=== PATIENT | female | born 1950 | race Caucasian/White ===

== ENCOUNTER → 2017-04-18 | Outpatient (CLI) | payer OTHER ==
[~2017-04-18] MED LIST: ACTOS PO; ADVAIR 1001 DISK W/D INH; ADVAIR 250-501 EAC1 IH; ADVAIR INH; ALBUTEROL17 GM INH; ASPIRIN PO; ASPIRIN325 M1 PO; ATENOLOL PO; BAYER ASPIRIN325 M1 PO; CELEBREX PO; COMBIVENT INH14.7 GM INH; DECADRON PO; EFFEXOR75 M3 PO; FERRO-TIME325 MG PO; GLUCOTROL XL PO; HYDRALAZINE HCL25 MG PO; HYDROCODON-ACE1 EAC7 PO; JANUVIA100 MG PO; LANTUS SOLOSTAR3 ML SUBQ; LANTUS100 UNITS/ SUBQ; LASIX PO; LASIX20 MG PO; LEVAQUIN PO; LEVAQUIN750 MG PO; LIPITOR PO; LIPITOR20 MG PO; LISINOPRIL20 MG PO; LORTAB 10/500 T1 TAB PO; LORTAB 7.5-3251 EACH PO; LORTAB 7.5-5001 TAB PO; METFORMIN HCL750 MG PO; METFORMIN PO; METRONIDAZOLE PO; MEVACOR PO; MOEXIPRIL HCL15 MG PO; MOEXIPRIL HCL7.5 MG PO; NOVOLOG100 U/M2 SUBQ; NOVOLOG100 U/ML SUBQ; OMEPRAZOLE20 M2 PO; OMEPRAZOLE40 M1 PO; PHENERGAN PO; PRILOSEC40 MG PO; PROAIR HFA8.5 GM; SPIRIVA18 MCG INH; SYMBICORT INH; TASPRIN325 MG PO; TENORMIN25 MG PO; UNIVASC7.5 MG PO; VENLAFAXINE HCL75 M1 PO; VENLAFAXINE HCL75 M2 PO; XANAX0.5 MG PO; ZOLOFT PO
--- NOTE | ~2017-04-18 | XA80 ---
[facility] A Service of [facility] RADIOLOGY TEXT RESULTS PATIENT: JOSIAH MALIK LOCATION: [facility]IVR : 52 UNIT #: [id number] AGE: [address]: Perry Charles MD SEX: F ORDER DR: [id number] [place] [id number] [facility]. [place], [place] [address] [id number] O MR#: [id number] Acc #: [id number] NAME: JOSIAH MALIK : 1950 SEX: F STUDY DATE/TIME: 04/18/2017 9:13 UNIT: CIVR ROOM: STUDY DESCRIPTION: XA CVC Remove Tunneled Cath W Attending Physician: Perry Charles M.D. Ordering Physician: Perry Charles M.D. Primary Care Physician: Merari Hatch M.D. MEDICAL IMAGING REPORT This report is preliminary unless electronic signature is present EXAM Port removal. HISTORY Port no longer needed. TECHNIQUE The procedure was explained to the patient including risks, benefits, and complications. Informed consent was obtained, and a formal time-out procedure was utilized. Full barrier sterile technique was employed via standard protocol. Conscious sedation was employed with intravenous Versed and fentanyl that was administered by nursing who was present and monitoring the patient during the examination. Using full barrier sterile technique and following local anesthesia with 1% Xylocaine, the port pocket was removed with blunt and sharp dissection. Fluoroscopic evaluation of the chest showed no residual catheter fragments. The port pocket was closed with an interrupted subcutaneous layer of 3-0 Vicryl suture followed by Dermabond glue. The patient tolerated the procedure well. Total fluoroscopy time is 0.1 minutes with a total dose of 1 mGy. IMPRESSION Successful port removal with fluoroscopic guidance. Conscious sedation utilized. Dictated by... Alphonso Wylie M.D. THIS IS AN ELECTRONICALLY VERIFIED REPORT Alphonso Wylie M.D. at 04/20/2017 4:33 PM RLF/jt [facility] A Service [facility] RADIOLOGY TEXT RESULTS PATIENT: JOSIAH MALIK LOCATION: [facility] #: [id number] : 51 UNIT #: [id number] AGE: [address]: Perry Charles MD SEX: F ORDER DR: TD: 04/18/2017 21:54 JOB #: [id number] MEDICAL IMAGING REPORT Page 1 of 1 COPY
[2017-04-18 08:41] LABS: HEMATOCRIT 32.7 % (35.0-45.0); HEMOGLOBIN 10.9 gm/dL (12.0-16.0); MEAN CELL VOLUME 90.7 FL (83-96); MEAN CORPUSCULAR HEMOGLOBIN 30.1 PG (28-34); MEAN CORPUSCULAR HGB CONC 33.2 g/dL (30-36); MEAN PLATELET VOLUME 7.3 FL (6.5-11.5); RED BLOOD COUNT 3.61 X10e (3.90-5.30); RED CELL DISTRIBUTION WIDTH 14.2 % (11.0-15.5); WHITE BLOOD COUNT 7.2 X10e3 (4.0-10.5)
[2017-04-18 08:55] LABS: PARTIAL THROMBOPLASTIN TIME 23.3 SECONDS (23.5-31.3); PROTHROMBIN TIME (PATIENT) 10.4 SECONDS (9.6-11.5)
== END | disposition home or self-care (01) ==
LOC: CIVR 07:57 → CSSDAY 07:57 → CIVR 10:00
PROVIDERS: Internal Medicine Medical Oncology
DX: Z45.2 Encounter for adjustment and management of vascular access device (principal); C34.90 Malignant neoplasm of unspecified part of unspecified bronchus or lung; D70.8 Other neutropenia; L59.9 Disorder of the skin and subcutaneous tissue related to radiation, unspecified; D50.9 Iron deficiency anemia, unspecified; J44.9 Chronic obstructive pulmonary disease, unspecified; G47.30 Sleep apnea, unspecified; Z88.1 Allergy status to other antibiotic agents; Z88.8 Allergy status to other drugs, medicaments and biological substances
CPT/HCPCS: 36415; 77001; 82947; 85027; 85610; 85730; J1642; J2250; J3010

== ENCOUNTER 2017-06-22 18:10 | Emergency (ER) | payer OTHER ==
[~2017-06-22] VITALS: Ht 154.9 cm; Wt 70.3 kg
--- NOTE | ~2017-06-22 | CR72 ---
[facility] A Service of [facility] RADIOLOGY TEXT RESULTS PATIENT: JOSIAH MALIK LOCATION: [facility] : 51 UNIT #: [id number] AGE: [address]: Mitesh Platt MD SEX: F ORDER DR: [id number] [facility] [address] [place], [place] [address] [id number] E MR#: [id number] Acc #: [id number] NAME: JOSIAH MALIK : 1950 SEX: F STUDY DATE/TIME: 06/22/2017 19:52 UNIT: [facility] ROOM: STUDY DESCRIPTION: CR Chest Single View Portable Attending Physician: Mitesh Platt M.D. Ordering Physician: Ed Mitesh Le M.D. Primary Care Physician: Merari Hatch M.D. MEDICAL IMAGING REPORT This report is preliminary unless electronic signature is present EXAM Chest portable 06/22/2017 1952 hours HISTORY Altered mental status today, shortness of air with activity since 06/21/2017, vomiting. COMPARISON Chest CT 12/26/2016 FINDINGS Portable upright chest demonstrates median sternotomy change with normal heart size. There is chronic appearing increased density in the left perihilar and infrahilar region corresponding to postradiation change seen on CT scan 12/26/2016. There are no acute pulmonary densities. No effusion or pneumothorax. IMPRESSION Median sternotomy change with normal heart size. There is perihilar density on the left, similar to CT scan 12/26/2016, likely representing postradiation change in this patient with history of lung carcinoma. There is no definite acute pulmonary density or pleural effusion. Dictated by... Deborah Medina M.D. THIS IS AN ELECTRONICALLY VERIFIED REPORT Deborah Medina M.D. at 06/23/2017 9:28 AM ALIRIO/hollie TD: 06/22/2017 23:56 JOB #: [id number] [facility] A Service of [facility] RADIOLOGY TEXT RESULTS PATIENT: JOSIAH MALIK LOCATION: [facility] #: [id number] : 52 UNIT #: [id number] AGE: [address]: Mitesh Platt MD SEX: F ORDER DR: MEDICAL IMAGING REPORT Page 1 of 1 COPY
--- NOTE | ~2017-06-22 | CT71 ---
[facility] A Service of [facility] RADIOLOGY TEXT RESULTS PATIENT: JOSIAH MALIK LOCATION: [facility] : 52 UNIT #: [id number] AGE: [address]: Mitesh Platt MD SEX: F ORDER DR: [id number] [facility] [address] [place], [place] [address] [id number] E MR#: [id number] Acc #: [id number] NAME: JOSIAH MALIK : 1950 SEX: F STUDY DATE/TIME: 06/22/2017 20:51 UNIT: [facility] ROOM: STUDY DESCRIPTION: CT Head Wo Contrast Attending Physician: Mitesh Platt M.D. Ordering Physician: Mitesh Platt M.D. Primary Care Physician: Merari Hatch M.D. MEDICAL IMAGING REPORT This report is preliminary unless electronic signature is present EXAM CT brain without contrast HISTORY Headache and confusion for [address] exam was performed with one or more of the following radiation dose reduction techniques: automatic exposure control, adjustment of mA and/or kV according to patient size, and iterative reconstruction. FINDINGS CT brain without contrast demonstrates no intracranial hemorrhage, mass or edema. No midline shift or ventricular dilatation or extraaxial fluid collection. Moderate chronic ischemic changes in the deep white matter bilaterally. Mild generalized cerebral cortical atrophy. Small chronic lacunar infarct in the left lentiform nucleus. IMPRESSION 1. No acute intracranial findings. 2. Chronic ischemic changes in the deep white matter bilaterally and small chronic lacunar infarct in the left lentiform nucleus. Dictated by... Guillermo Leon M.D. THIS IS AN ELECTRONICALLY VERIFIED REPORT Guillermo Leon M.D. at 06/23/2017 10:10 PM AUSTYN/nathan TD: 06/23/2017 00:50 [facility] A Service of [facility] RADIOLOGY TEXT RESULTS PATIENT: JOSIAH MALIK LOCATION: [facility] : 52 UNIT #: [id number] AGE: [address]: Mitesh Platt MD SEX: F ORDER DR: JOB #: [id number] MEDICAL IMAGING REPORT Page 1 of 1 COPY
--- NOTE | ~2017-06-22 | EKG ---
PATIENT: JOSIAH MALIK UNIT #: [id number] Ventricular Rate: 77 BPM Atrial Rate: 77 BPM P-R Interval: 154 ms QRS Duration: 78 ms Q-T Interval: 386 ms QTC Calculation(Bezet): 436 ms P Munster: 81 degrees Calculated R Munster: 4 degrees Calculated T Munster: 70 degrees Diagnosis Line: Normal sinus rhythm Diagnosis Line: Normal ECG Diagnosis Line: When compared with ECG of 10-OCT-2016 13:38, Diagnosis Line: No significant change was found Diagnosis Line: Confirmed by TIN MOJICA MD ([id number]) on 06/24/2017 Diagnosis Line: 8:24:24 AM INTERPRETING MD: YUNIOR BENJAMIN
[2017-06-22 20:12] LABS: BASOPHIL# 0.1 X10e3 (0-0.3); BASOPHIL% 1.2 % (0-2.5); EOSINOPHIL# 0.1 X10e3 (0-0.7); EOSINOPHIL% 0.9 % (0.0-7.0); HEMATOCRIT 34.4 % (35.0-45.0); HEMOGLOBIN 11.4 gm/dL (12.0-16.0); LYMPHOCYTE# 1.1 X10e3 (1.0-3.5); MEAN CELL VOLUME 90.4 FL (83-96); MEAN CORPUSCULAR HEMOGLOBIN 29.9 PG (28-34); MEAN PLATELET VOLUME 8.2 FL (6.5-11.5); MONOCYTE# 0.6 X10e3 (0-1.0); MONOCYTE% 5.7 % (3.0-12.0); NEUTROPHIL% 82.2 % (40-75); PLATELET COUNT 238 X10e3 (140-420); RED BLOOD COUNT 3.81 X10e (3.90-5.30); RED CELL DISTRIBUTION WIDTH 14.6 % (11.0-15.5); WHITE BLOOD COUNT 10.9 X10e3 (4.0-10.5)
[2017-06-22 20:14] LABS: DIFF IND NO
[2017-06-22 20:36] LABS: ALBUMIN SERUM 4.3 g/dL (3.5-5.0); BILIRUBIN, DIRECT 0.1 mg/dL (0.0-0.2); BILIRUBIN,INDIRECT 0.3 mg/dL (0.0-0.9); BILIRUBIN,TOTAL 0.4 mg/dL (0.2-2.0); BUN/CREATININE RATIO 14.44; CALCIUM SERUM 9.1 mg/dL (8.4-10.2); CREATININE SERUM 0.9 mg/dL (0.6-1.4); GLOM FILT RATE Estimated 66.7 mL/min (>60); POTASSIUM 4.5 mmol/L (3.5-5.1); PROTEIN TOTAL SERUM 8.1 g/dL (6.0-8.3)
[2017-06-22 22:26] LABS: URINE SOURCE CLEAN CATCH
[2017-06-22 22:39] LABS: URINE APPEARANCE CLEAR; URINE BILIRUBIN NEG (NEG); URINE BLOOD NEG (NEG); URINE COLOR YELLOW; URINE GLUCOSE NEG (NEG); URINE KETONE TRACE (NEG); URINE LEUKOCYTE ESTERASE 1+ (NEG); URINE NITRATE POS (NEG); URINE PROTEIN TRACE (NEG); URINE SPECIFIC GRAVITY 1.018 (1.003-1.035)
[2017-06-22 22:42] LABS: CULTURE INDICATED? YES; URINE BACTERIA AUWI 4+ (NEGATIVE); URINE SQUAMOUS EPITHELIAL CELL OCC /[HPF]
== END 2017-06-23 | disposition home or self-care (01) ==
LOC: CED 18:10
DX: R41.0 Disorientation, unspecified (principal); N39.0 Urinary tract infection, site not specified; I11.9 Hypertensive heart disease without heart failure; E11.9 Type 2 diabetes mellitus without complications; J45.909 Unspecified asthma, uncomplicated; J44.9 Chronic obstructive pulmonary disease, unspecified; Z95.1 Presence of aortocoronary bypass graft; Z88.8 Allergy status to other drugs, medicaments and biological substances; Z88.1 Allergy status to other antibiotic agents; Z79.899 Other long term (current) drug therapy; Z79.82 Long term (current) use of aspirin
CPT/HCPCS: 36415; 70450; 71010; 80048; 80076; 81003; 82947; 85025; 87086; 87088; 87186; 93005; 99285; J0696

== ENCOUNTER → 2017-07-04 | Outpatient (CLI) | payer OTHER ==
--- NOTE | ~2017-07-04 | CT55 ---
[facility] A Service of [facility] RADIOLOGY TEXT RESULTS PATIENT: JOSIAH MALIK LOCATION: [facility] : 52 UNIT #: [id number] AGE: [address]: Perry Charles MD SEX: F ORDER DR: [id number] [facility] [address] [place], [place] [address] [id number] O MR#: [id number] Acc #: [id number] NAME: JOSIAH MALIK : 1950 SEX: F STUDY DATE/TIME: 07/04/2017 10:36 UNIT: [facility] ROOM: STUDY DESCRIPTION: CT Chest W Con Attending Physician: Perry Charles M.D. Referring Physician: Perry Charles M.D. Ordering Physician: Perry Charles M.D. Primary Care Physician: Merari Hatch M.D. MEDICAL IMAGING REPORT This report is preliminary unless electronic signature is present EXAM CT chest with contrast INDICATIONS Lung cancer. The patient was diagnosed 3 years ago. Lung cancer was located on the left. Patient reports some mild shortness of breath over the past few years but it is not gotten any worse. The exam is requested for surveillance for metastatic disease. COMPARISON Prior exam from 12/26/[address] images were obtained from the thoracic inlet through the dome of the diaphragm following the administration of intravenous contrast material. This CT exam was performed with one or more of the following radiation dose reduction techniques: automatic exposure control, adjustment of mA and/or kV according to patient size, and iterative reconstruction. 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 Similar findings were present in December 2016 and do not appear significantly changed. I do not see any new pulmonary nodules or masses. The thyroid gland, trachea and esophagus appear unremarkable. There is no pleural or pericardial effusion. There are coronary artery calcifications. Thoracic aorta measures within normal size limits as was identified on the prior examination. There is some ulcerative plaque involving the medial aspect of the aortic arch, although it could also reflect a tiny ductus diverticulum. Again, its appearance is stable when compared to the prior study. I do not see any suspicious adenopathy. [facility]. [facility] A Service of [facility] & [facility] RADIOLOGY TEXT RESULTS PATIENT: JOSIAH MALIK LOCATION: [facility] : 52 UNIT #: [id number] AGE: [address]: Perry Charles MD SEX: F ORDER DR: Images through the upper abdomen do not demonstrate any acute abnormalities. Review of bony windows does not demonstrate any aggressive osseous abnormalities. The patient does have some atherosclerotic involvement at the origin of the left common carotid artery which is probably resulting in some moderate narrowing. IMPRESSION 1. No convincing evidence of recurrent or residual disease. 2. Post radiation changes seen within the left lung. 3. Please see the body of the report for any other additional incidental findings. Dictated by... Ale Clarke M.D. THIS IS AN ELECTRONICALLY VERIFIED REPORT Ale Clarke M.D. at 07/04/2017 4:43 PM AFF/to TD: 07/04/2017 15:27 JOB #: [id number] MEDICAL IMAGING REPORT Page 1 of 1 COPY
== END | disposition home or self-care (01) ==
LOC: CCAT 07-03 09:00
DX: Z08 Encounter for follow-up examination after completed treatment for malignant neoplasm (principal); D70.8 Other neutropenia; L59.9 Disorder of the skin and subcutaneous tissue related to radiation, unspecified; D50.9 Iron deficiency anemia, unspecified; Z85.118 Personal history of other malignant neoplasm of bronchus and lung; Z92.3 Personal history of irradiation
CPT/HCPCS: 71260; Q9967